=== PATIENT | female | born 1960 | race Two or more races ===

== ENCOUNTER 2017-07-12 07:16 | Emergency (ER) | payer BC ==
[~2017-07-12] VITALS: Ht 170.2 cm; Wt 89.3 kg
[~2017-07-12 07:16] MED LIST: GLU10 PO; GLU850 PO; ZES20 PO
[2017-07-12 10:31] VITALS: BP 160/89
== END 2017-07-12 10:31 | disposition home or self-care (01) ==
LOC: ED 07:16
DX: S29.012A Strain of muscle and tendon of back wall of thorax, initial encounter (principal); E66.9 Obesity, unspecified; E11.9 Type 2 diabetes mellitus without complications; Z72.0 Tobacco use; W01.0XXA Fall on same level from slipping, tripping and stumbling without subsequent striking against object, initial encounter; Y93.89 Activity, other specified; Y99.8 Other external cause status; Y92.89 Other specified places as the place of occurrence of the external cause
CPT/HCPCS: 72072